=== PATIENT | female | born 1940 | race Caucasian/White ===

== ENCOUNTER 2018-02-13 08:33 | Observation (INO) ==
[2018-02-13] MEDS ORDERED: GELATIN SPONGE,ABSORBABLE 1 EACH SPONGE TOPICAL ONE (08:34)
[2018-02-13] MEDS ORDERED: LIDOCAINE 1% 20 ML VIAL SQ ONE (08:34)
--- NOTE | 2018-02-13 13:23 | Ultrasound Report ---
CLINICAL INFORMATION: Hematuria following right renal biopsy TECHNIQUE: Grayscale and color flow Doppler spectral imaging COMPARISON: CT scan dated 02/13/2018 FINDINGS: Limited evaluation of the right kidney. There is no perinephric hemorrhage. No hydronephrosis. No intrarenal mass. No detectable hematoma. Doppler study demonstrates no active bleeding. If this patient's hematocrit falls or if hematuria is persistent or increased to a follow-up examination should be performed. IMPRESSION: 1. No perinephric hemorrhage. No intrarenal hematoma 2. No detectable active bleeding. Interpreted and Authenticated by: Josiah Navarro 02/13/18
[2018-02-13] MEDS ORDERED: LOSARTAN 50 MG TABLET PO ONE (13:24)
--- NOTE | 2018-02-13 13:53 | Nephrology Progress Note ---
Subjective Patient information: Note initiated : 02/13/18 at 1:50 pm Service Date, if different from initiated Date: [] Patient: Glen Little 77 y/o F admitted on for Renal CT BX Acute renal failure OK per DR Sharlene andino. Chief Complaint: [] Principal diagnosis: renal biopsy Interval history: Patient was seen earlier this week She has h/o acute renal failure with s.creatinine trend of 0.8-0.9 in 11/2017, 2.0-2.3-2.0-1.9-1.7 (improvement after losartan/ppi WAS HELD) UA with persistent WBC, microalbuminuria but no hematuria labs significant for ESR, ANASTASIIA + in titer 1: 160 and atypical P anca titer positive case discussed with rheumatology patient with h/o fatigue, poor appetite but no e/o any other organ involvement given positive serologies and abnormal renal function renal biopsy pursued after detailed discussion of risk and benefit Patient held aspirin per radiology recommendation post procedure patient noted to have overt hematuria, discussed with Dr Navarro Hb/hct at 11.41 was 10.8/31.9, was 11.2 on Friday when checked. Stat renal US showed no active hematoma or extravasation plan is now to observe patient for 24 hours post procedure with serial Hb/hct monitoring to ensure no drop in Hb, monitor for worsening hematuria./bleeding Patient denies any pain at biopsy site she denies SOB, CP she has no other issues Pertinent ROS: as above Objective - Vital Signs Vital signs: Vital Signs Temp Pulse Resp BP BP Pulse Ox 02/13/18 13:01 161/53 94 02/13/18 12:54 99 02/13/18 12:46 152/68 99 02/13/18 12:31 139/72 97 02/13/18 12:18 99 02/13/18 12:16 97.4 F 16 136/75 98 02/13/18 12:08 97.4 F 16 142/68 99 02/13/18 09:11 58 L 16 157/72 100 Intake and Output 02/12/18 02/13/18 02/13/18 21:59 05:59 13:59 Output Total 500 / 500 Balance -500 / -500 Output: Void Amount 500 / 500 Other: Urine Color Dark Shaylee Blood Tinged Urine Odor Normal Intake & Output: Intake & Output 02/12/18 02/13/18 02/13/18 21:59 05:59 13:59 Output Total 500 / 500 Balance -500 / -500 Output: Void Amount 500 / 500 Other: Urine Color Dark Shaylee Blood Tinged Urine Odor Normal - General Appearance General appearance: appears started age EENT: mucous membranes moist Neck: no JVD Respiratory: clear Cardiology: no rub, no edema, regular rate, regular rhythm Gastrointestinal: no tenderness, no guarding Integumentary: no rash, warm and dry Neurologic: alert and oriented x3 Musculoskeletal: no erythema, no cyanosis Psychiatric: mood/affect appropriate - Lab 02/13/18 11:41 Assessment and Plan (1) Acute renal insufficiency Status: Chronic (2) HTN (hypertension) Status: Acute (3) Status post biopsy of kidney Status: Acute - Narrative A/P Narrative: Patient does have overt hematuria post biopsy discussed with radiology, US with no acute concerns plan to monitor serial Hematocrits/Hb, if any significant drop > 1gm/dl of Hb please inform radiology and nephrology Goal BP less than 140/90 if persistent elevated will give prn hydralazine bed rest for 24 hrs SCD boots for DVT prophylaxis resume home meds requested hospitalist to help manage this issue Sign off given to Dr Graff
[2018-02-13] MEDS ORDERED: HYDROcodone/APAP 5/325MG TABLET PO PRN (13:55)
[2018-02-13] MEDS ORDERED: ACETAMINOPHEN 325 MG TABLET PO PRN (13:55)
[2018-02-13] MEDS ORDERED: ONDANSETRON 4 MG/2 ML VIAL IV PRN (13:55)
[2018-02-13] MEDS ORDERED: hydrALAZINE 20 MG/ML VIAL IV PRN (13:59)
[2018-02-13] MEDS: 0.9 % SODIUM CHLORIDE 10 ML SYRINGE IV SCH ×2 (14:27→23:46)
--- NOTE | 2018-02-13 15:51 | Internal Med History&Physical ---
Medical - H&P: [facility] Patient information: Note initiated : 02/13/18 at 3:49 pm Service Date, if different from initiated Date: [] Patient: Glen Little 77 y/o F admitted on 02/13/[address] BX Acute renal failure OK per DR Sharlene andino. Chief Complaint: Hematuria following renal biopsy History of present illness: Ms. Little is a 77 year old F with a history of hypertension, hypothyroidism, acute renal failure occurring over the last few months who presents for renal biopsy. Patient's creatinine began increasing after November of this year. She did have positive serologies, including and a, but no other evidence of organ system involvement of an autoimmune process. Her creatinine improved a bit after stopping PPI, but is not normalized. An elective renal biopsy was scheduled for today. This is performed by Dr. Navarro. Patient was initially placed in extended recovery. However she had gross hematuria with her first void after the biopsy. She is now hospitalized on observation for further monitoring of hemoglobin as well as evidence of ongoing blood loss. Renal ultrasound obtained following the soda of gross hematuria was without evidence of hematoma or other visible bleeding. The patient subsequently voided without gross hematuria. The patient currently feels fairly well, some stinging at the site of the biopsy. She's had a mild headache, thinks it may be because she has been mostly nothing by mouth her only a few liquids during the day. No sore throat, no cough, no shortness of breath, no sputum production, no chest pain, no abdominal pain, no nausea or vomiting, no lower extremity edema, no focal neurologic symptoms. Her main complaint is being hungry. All systems: reviewed and no additional remarkable complaints except as stated Medical - H&P: PMH Medical history: Diabetes mellitus (Chronic) Decreased energy (Chronic) History of excessive thirst (Chronic) Hiatal hernia (Chronic) Fibroids (Chronic) Abdominal pain (Chronic) History of SIADH (Chronic) Tubular adenoma (Chronic ~2016) Anxiety (Chronic) Depression (Chronic) Memory problem (Chronic) Palpitations (Chronic) Syncope (Chronic) Light headedness (Chronic) Malaise (Chronic) Dizziness (Chronic) Fatigue (Chronic) Constipation (Chronic) UTI (urinary tract infection) (Chronic) Encounter for diabetic foot exam (Chronic) Dermatitis (Chronic) Dysuria (Chronic) Dry cough (Chronic) Head congestion (Chronic) Head cold (Chronic) Bilateral cataracts (Chronic) Left bundle branch block (LBBB) on electrocardiogram (Chronic ~02/2014) Meningioma (Chronic ~09/2016) Osteopenia (Chronic) Hypolipidemia (Chronic) Hypothyroidism (Chronic) Hypertension (Chronic) Shoulder dislocation (Chronic) Adjustment disorder with mixed anxiety and depressed mood (Chronic) Cough (Chronic) Nausea (Chronic) Rash (Chronic) Swelling (Chronic) Poor appetite (Chronic) Hyponatremia (Chronic ~02/2014) Acute renal insufficiency (Chronic) Surgical history: Hx of cataract extraction (Chronic) Normal colonoscopy (Chronic ~2005) Pertinent family history: Brother Colon cancer CHF (congestive heart failure) Father Coronary heart disease Sister , at age 40 Lupus Uterine cancer Mother History of ETOH abuse Social history: marital status: occupational 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 other: No Children physical activity: walking frequency: other smoking status: Former smoker quit date: 04/07/79 alcohol intake frequency: does not drink substance use type: does not use Medical - H&P: Meds Home Medications Medication Instructions Recorded Confirmed Type Lactobacillus acidophilus PO QDAY 01/30/18 02/09/18 History aspirin 81 mg tablet,delayed 81 mg PO QDAY 01/30/18 02/09/18 History release atorvastatin 80 mg tablet 80 mg PO QDAY 01/30/18 02/09/18 History doxazosin 4 mg tablet 4 mg PO QPM tab 01/30/18 02/09/18 History fluticasone 50 mcg/actuation nasal 2 spray INTRANASAL QDAY 01/30/18 02/09/18 History spray,suspension levothyroxine 100 mcg tablet 100 mcg PO QDAY 01/30/18 02/09/18 History uzhepain-xvflblq-iozt-lutein tablet mcg PO QDAY tab 01/30/18 02/09/18 History ondansetron 4 mg disintegrating 4 mg PO Q6H PRN tab 01/30/18 02/09/18 History tablet potassium chloride ER 10 mEq 10 meq PO BID 01/30/18 02/09/18 History capsule,extended release sod.chlorid-potassium chloride PO TID 01/30/18 02/09/18 History loratadine 10 mg tablet 10 mg PO QDAY 02/02/18 02/09/18 History magnesium 250 mg tablet 250 mg PO QDAY 02/02/18 02/09/18 History metoprolol succinate ER 200 mg 200 mg PO BID 02/02/18 02/09/18 History tablet,extended release 24 hr losartan 100 mg tablet 50 mg PO QDAY tab 02/05/18 02/09/18 History Docusate Sodium [Dulcolax Stool 100 mg PO DAILYP PRN 02/13/18 02/13/18 History Softener] Psyllium Husk [Metamucil] 660 gm PO BID 02/13/18 02/13/18 History Ranitidine HCl [Zantac 75] 75 mg PO BIDP PRN 02/13/18 02/13/18 History Allergies Allergy/AdvReac Type Severity Reaction Status Date / Time ELLA Inhibitors Allergy Severe unknown Verified 02/02/18 09:59 amlodipine [From Norvasc] Allergy Severe unknown Verified 02/02/18 09:59 flumazenil [From Romazicon] Allergy Severe unknown Verified 02/02/18 09:59 shrimp Allergy Severe unknown Verified 02/02/18 09:59 Sulfa (Sulfonamide Allergy Intermediate unknown Verified 02/02/18 09:59 Antibiotics) felodipine Allergy Mild unknown Verified 02/02/18 09:59 Amoxicillin Allergy Unknown unknown Verified 02/02/18 09:59 Medical - H&P: Exam - Constitutional Vitals: Temp Pulse Resp BP Pulse Ox 98.0 F 58 L 16 151/61 98 02/13/18 15:16 02/13/18 09:11 02/13/18 15:16 02/13/18 15:16 02/13/18 15:21 General appearance: average body habitus, cooperative, no acute distress - Head Head exam: Present: atraumatic, normal inspection - Eye Eye exam: Present: PERRL. Absent: conjunctival injection, scleral icterus - ENT ENT exam: Present: mucous membranes moist, normal oropharynx - Neck Neck exam: Present: normal inspection. Absent: meningismus, thyromegaly - Respiratory Respiratory exam: Present: CTAB. Absent: accessory muscle use, rales, rhonchi, wheezes - Cardiovascular Cardiovascular exam: Present: normal rate and rhythm. Absent: gallop, systolic murmur - Expanded Cardiovascular Exam Peripheral pulses: 2+: carotid (L), carotid (R) - GI/Abdominal GI/Abdominal exam: Present: normal bowel sounds, soft. Absent: organomegaly, tenderness - Extremities Exam Extremities exam: Present: normal capillary refill, normal inspection. Absent: joint swelling, pedal edema - Back Exam Additional comments: Patient is on bed rest, back is not able to be fully examined. No ecchymoses noted. - Neurological Exam Neurological exam: Present: alert, CN II-XII intact, oriented X3. Absent: motor sensory deficit - Psychiatric Psychiatric exam: Present: normal affect, normal mood - Skin Skin exam: Present: dry, warm. Absent: cyanosis Medical - H&P: Reslt - Labs CBC & Chem 7: 02/13/18 14:21 Labs: Short CBC 02/13/18 02/13/18 Range/Units 11:41 14:21 Hgb 10.8 L 10.4 L (12.0-15.0) g/dL Hct 31.9 L 30.7 L (36.0-48.0) % - Impressions Renal U/S IMPRESSION: 1. No perinephric hemorrhage. No intrarenal hematoma 2. No detectable active bleeding. Medical - H&P: A/P (1) Status post biopsy of kidney Current visit: Yes Status: Acute (2) Gross hematuria Current visit: Yes Status: Acute (3) Acute renal insufficiency Current visit: No Status: Chronic (4) Hypertension Current visit: No Status: Chronic (5) Hypothyroidism Current visit: No Status: Chronic - Narrative A/P Narrative: 77-year-old female who is status post percutaneous renal biopsy for unexplained acute rise in her creatinine since this past summer, transition from extended stage observation secondary to gross hematuria postprocedure. Gross hematuria. Likely related to renal biopsy. No evidence of hematoma or active bleeding on ultrasound. Subsequent urine voids have been without gross hematuria. Plan: -Observation hospitalization, telemetry monitoring -Serial H&H. -If continues to have evidence of ongoing blood loss, will need transfer for interventional radiology embolization. -Will keep on clear liquid diet in case may need sedation for procedure. Acute renal failure. Unexplained, biopsy as above. Plan: Monitor creatinine. Hypertension. Plan: Continue regimen. Hypothyroidism. Plan: Continue home meds.
[2018-02-13] MEDS ORDERED: 0.9 % SODIUM CHLORIDE 250 ML IV ONE ×2 (20:00→21:10)
[2018-02-13] MEDS ORDERED: DOXAZOSIN 4 MG TABLET PO SCH (21:00)
[2018-02-13] MEDS: METOPROLOL SUCCINATE 50 MG TAB.XL.24H PO SCH (21:46)
[2018-02-13] MEDS: PSYLLIUM HUSK 6 GM PACKET PO SCH (23:45)
[2018-02-14] MEDS: 0.9 % SODIUM CHLORIDE 10 ML SYRINGE IV SCH (06:00)
[2018-02-14 06:17] LABS: Blood Urea Nitrogen 28 mg/dl (8-23)
--- NOTE | 2018-02-14 07:17 | Nephrology Progress Note ---
Subjective Patient information: Note initiated : 02/14/18 at 7:14 am Service Date, if different from initiated Date: [] Patient: Glen Little 77 y/o F admitted on 02/13/[address] BX Acute renal failure [place] per DR Sharlene andino. Chief Complaint: [] Principal diagnosis: renal biopsy Interval history: Gross hematuria s/p CT guided kidney biopsy Pertinent ROS: Urine clear No pain No weakness Objective - Vital Signs Vital signs: Vital Signs Temp Pulse Pulse Resp BP BP Pulse Ox 02/14/18 06:24 98.2 F 18 135/68 96 02/14/18 03:36 98.3 F 14 125/61 96 02/14/18 00:31 117/53 02/14/18 00:01 100/54 02/13/18 23:31 97.4 F 12 114/51 97 02/13/18 23:01 121/52 02/13/18 22:31 115/49 02/13/18 22:01 103/47 02/13/18 21:46 107/49 02/13/18 21:31 105/50 02/13/18 21:16 120/50 02/13/18 20:46 56 L 116/54 96 02/13/18 20:31 59 L 98/46 96 02/13/18 20:16 63 124/52 96 02/13/18 20:01 60 111/48 94 02/13/18 19:46 55 L 101/47 95 02/13/18 19:31 58 L 87/45 94 02/13/18 19:16 60 75/41 95 02/13/18 19:01 59 L 78/40 95 02/13/18 18:49 96 02/13/18 18:31 70 117/50 96 02/13/18 18:16 71 125/53 95 02/13/18 18:01 56 L 115/51 96 02/13/18 17:59 57 L 96 02/13/18 17:46 59 L 117/53 96 02/13/18 17:31 55 L 119/50 98 02/13/18 17:22 59 L 124/49 96 02/13/18 17:01 126/53 97 02/13/18 17:00 95 02/13/18 16:46 116/50 97 02/13/18 16:31 141/60 97 02/13/18 16:16 15 140/58 97 02/13/18 16:05 99 02/13/18 16:01 145/55 97 02/13/18 15:46 165/63 99 02/13/18 15:31 145/72 98 02/13/18 15:21 98 02/13/18 15:16 98.0 F 16 151/61 99 02/13/18 15:01 16 159/60 98 02/13/18 14:46 17 171/71 100 02/13/18 14:42 99 02/13/18 14:31 159/59 98 02/13/18 14:16 163/62 98 02/13/18 14:01 154/60 98 02/13/18 13:55 18 98 02/13/18 13:31 147/66 99 02/13/18 13:16 159/59 100 02/13/18 13:01 161/53 94 02/13/18 12:54 99 02/13/18 12:46 152/68 99 02/13/18 12:31 139/72 97 02/13/18 12:18 99 02/13/18 12:16 97.4 F 16 136/75 98 02/13/18 12:08 97.4 F 16 142/68 99 02/13/18 09:11 58 L 16 157/72 100 Intake and Output 02/13/18 02/14/18 02/14/18 21:59 05:59 13:59 Intake Total 610 / 610 Output Total 750 / 750 800 / 800 100 / 100 Balance -750 / -750 -190 / -190 -100 / -100 Intake: IV 250 / 250 Sodium Chloride 0.9% 250 ml @ 250 / 250 Wide Open IV BOLUS ONE Rx#: [id number] Oral 360 / 360 Output: Void Amount 750 / 750 800 / 800 100 / 100 Other: Urine Color Yellow Brown Bright Yellow Urine Odor Normal # Voids 1 1 1 Weight 155 lb Intake & Output: Intake & Output 02/13/18 02/14/18 02/14/18 21:59 05:59 13:59 Intake Total 610 / 610 Output Total 750 / 750 800 / 800 100 / 100 Balance -750 / -750 -190 / -190 -100 / -100 Weight 155 lb Intake: IV 250 / 250 Sodium Chloride 0.9% 250 ml @ 250 / 250 Wide Open IV BOLUS ONE Rx#: [id number] Oral 360 / 360 Output: Void Amount 750 / 750 800 / 800 100 / 100 Other: Urine Color Yellow Brown Bright Yellow Urine Odor Normal # Voids 1 1 1 - General Appearance General appearance: appears started age EENT: mucous membranes moist Neck: supple Respiratory: clear Cardiology: no edema Gastrointestinal: no tenderness Integumentary: no rash, warm and dry Neurologic: no focal deficit, alert and oriented x3 Musculoskeletal: no erythema, no cyanosis Psychiatric: mood/affect appropriate, cooperative - Lab 02/14/18 03:33 02/14/18 03:33 Most recent lab results Calcium 9.4 mg/dl (8.6-10.4) 02/14/18 03:33 Assessment and Plan (1) Status post biopsy of kidney Glen Little is a 77-year-old female with hypertension, hyperlipidemia and history of hyponatremia, admitted on 02/13/[address] guided kidney biopsy for overnight observation for gross hematuria. Progress: Gross hematuria, resolved. Anemia, stable. Plan: OK to discharge home. Follow up with Dr. Lopez as scheduled. Status: Acute Priority: Medium (2) Gross hematuria Status: Resolved Priority: Medium
[2018-02-14] MEDS ORDERED: LEVOTHYROXINE 100 MCG TABLET PO SCH (07:30)
[2018-02-14] MEDS ORDERED: POTASSIUM CHLORIDE 10 MEQ TABLET PO SCH (08:00)
--- NOTE | 2018-02-14 08:34 | Ultrasound Report ---
CLINICAL INFORMATION: Status post right renal biopsy. Patient had one episode of hematuria TECHNIQUE: Grayscale and color flow Doppler spectral imaging COMPARISON: Previous postbiopsy renal ultrasound dated 02/13/2018 FINDINGS: Right kidney measures 10.8 x 4.9 x 4.8 cm. There is no perinephric or intrarenal hematoma. No detectable active bleeding. There is no hydronephrosis. Examination is unremarkable. IMPRESSION: Negative right renal ultrasound Interpreted and Authenticated by: Josiah Navarro 02/14/18
--- NOTE | 2018-02-14 08:38 | Cat Scan Report ---
CLINICAL INFORMATION: Acute renal failure TECHNIQUE: Informed consent was obtained. A discussed the procedure and potential risks and complications with the patient and her daughter. Risks include bleeding which may require embolization or surgery. They understand and consent. Patient was scanned in a prone position. Routine ChloraPrep skin cleansing. 1% lidocaine was injected subcutaneously and deep. An 18-gauge coaxial biopsy needle system was utilized. Right renal cortex was biopsied with 3 core specimens obtained. These were placed in saline. Gelfoam was injected through the guiding needle. Postbiopsy scan demonstrates no perinephric hemorrhage or detectable infrarenal hematoma. Initial voiding was positive for hematuria. Patient's hematocrit and hemoglobin were stable overnight and subsequent voids were clear without gross hematuria. Patient was discharged after overnight observation IMPRESSION: CT guided right renal biopsy Interpreted and Authenticated by: Josiah Navarro 02/14/18
--- NOTE | 2018-02-14 08:42 | Discharge Summary ---
Medical - DS: Prov Patient information: Note initiated : 02/14/18 at 8:40 am Service Date, if different from initiated Date: [] Patient: Glen Little 77 y/o F admitted on 02/13/[address] BX Acute renal failure [place] per DR Sharlene andino. Date of admission: 02/13/18 13:55 Discharge date: 02/14/18 Primary care physician: Sarah Jenkins Admitting clinician: Kianna Mccartney Discharging clinician: Kianna Mccartney Medical - DS: Meds - Discharge Medications Active and Home Medications: Home Medications Lactobacillus acidophilus 1 each PO QDAY 01/30/18 [History Confirmed 02/13/18 Last Taken 02/13/18] aspirin 81 mg tablet,delayed release 81 mg PO QDAY 01/30/18 [History Confirmed 02/13/18 Last Taken Unknown] atorvastatin 80 mg tablet 80 mg PO HS 01/30/18 [History Confirmed 02/13/18 Last Taken 02/13/18] doxazosin 4 mg tablet 4 mg PO QPM tab 01/30/18 [History Confirmed 02/13/18 Last Taken Unknown] fluticasone 50 mcg/actuation nasal spray,suspension 2 spray INTRANASAL QDAY [History Confirmed 02/13/18 Last Taken Unknown] levothyroxine 100 mcg tablet 100 mcg PO QDAY 01/30/18 [History Confirmed Last Taken 02/13/18] xdeyfprv-ivztzuv-pvqc-lutein tablet 1 each PO QDAY tab 01/30/18 [History Confirmed 02/13/18 Last Taken 02/13/18] ondansetron 4 mg disintegrating tablet 4 mg PO Q6HP PRN tab 01/30/18 [History Confirmed 02/13/18 Last Taken Unknown] potassium chloride ER 10 mEq capsule,extended release 10 meq PO BID 01/30/18 [ History Confirmed 02/13/18 Last Taken Unknown] loratadine 10 mg tablet 10 mg PO DAILYP PRN 02/02/18 [History Confirmed Last Taken 02/13/18] magnesium 250 mg tablet 250 mg PO QDAY 02/02/18 [History Confirmed 02/13/18 Last Taken 02/13/18] metoprolol succinate ER 200 mg tablet,extended release 24 hr 200 mg PO BID 02/02 [History Confirmed 02/13/18 Last Taken Unknown] losartan 100 mg tablet 100 mg PO QDAY tab 02/05/18 [History Confirmed 02/13/18 Last Taken 02/13/18] Docusate Sodium [Dulcolax Stool Softener] 100 mg PO DAILYP PRN 02/13/18 [ History Confirmed 02/13/18 Last Taken Unknown] Psyllium Husk [Metamucil] 660 gm PO BID 02/13/18 [History Confirmed 02/13/18 Last Taken Unknown] Ranitidine HCl [Zantac 75] 75 mg PO BIDP PRN 02/13/18 [History Confirmed Last Taken Unknown] Medical - DS: Hosp Hospital course: Ms. Little is a 77 year old F with a history of hypertension, hypothyroidism, acute renal failure occurring over the last few months who presents for renal biopsy. Patient's creatinine began increasing after November of this year. She did have positive serologies, including and a, but no other evidence of organ system involvement of an autoimmune process. Her creatinine improved a bit after stopping PPI, but is not normalized. An elective renal biopsy was scheduled for today. This is performed by Dr. Navarro. Patient was initially placed in extended recovery. However she had gross hematuria with her first void after the biopsy. She is now hospitalized on observation for further monitoring of hemoglobin as well as evidence of ongoing blood loss. Renal ultrasound obtained following the soda of gross hematuria was without evidence of hematoma or other visible bleeding. The patient subsequently voided without gross hematuria. The patient remained stable overnight. She is seen by interventional radiology on the day of discharge, repeat ultrasound showed no evidence of hematoma or other worrisome findings. She had no further gross hematuria. Hemoglobin varied on repeat checks, but was stable at her baseline at the time of discharge. Patient is discharged home, follow-up with Dr. Lopez as scheduled for results of biopsy. Discharge diagnosis: Gross hematuria following renal biopsy Secondary discharge diagnosis: Acute renal failure - Time Spent with Patient Total time spent providing and/or coordinating discharge services: Less than 30 minutes Medical - DS: Exam - Constitutional Vitals: Vital Signs Temp Pulse Pulse Resp BP BP Pulse Ox 02/14/18 06:24 98.2 F 18 135/68 96 02/14/18 03:36 98.3 F 14 125/61 96 02/14/18 00:31 117/53 02/14/18 00:01 100/54 02/13/18 23:31 97.4 F 12 114/51 97 02/13/18 23:01 121/52 02/13/18 22:31 115/49 02/13/18 22:01 103/47 02/13/18 21:46 107/49 02/13/18 21:31 105/50 02/13/18 21:16 120/50 02/13/18 20:46 56 L 116/54 96 02/13/18 20:31 59 L 98/46 96 02/13/18 20:16 63 124/52 96 02/13/18 20:01 60 111/48 94 02/13/18 19:46 55 L 101/47 95 02/13/18 19:31 58 L 87/45 94 02/13/18 19:16 60 75/41 95 02/13/18 19:01 59 L 78/40 95 02/13/18 18:49 96 02/13/18 18:31 70 117/50 96 02/13/18 18:16 71 125/53 95 02/13/18 18:01 56 L 115/51 96 02/13/18 17:59 57 L 96 02/13/18 17:46 59 L 117/53 96 02/13/18 17:31 55 L 119/50 98 02/13/18 17:22 59 L 124/49 96 02/13/18 17:01 126/53 97 02/13/18 17:00 95 02/13/18 16:46 116/50 97 02/13/18 16:31 141/60 97 02/13/18 16:16 15 140/58 97 02/13/18 16:05 99 02/13/18 16:01 145/55 97 02/13/18 15:46 165/63 99 02/13/18 15:31 145/72 98 02/13/18 15:21 98 02/13/18 15:16 98.0 F 16 151/61 99 02/13/18 15:01 16 159/60 98 02/13/18 14:46 17 171/71 100 02/13/18 14:42 99 02/13/18 14:31 159/59 98 02/13/18 14:16 163/62 98 02/13/18 14:01 154/60 98 02/13/18 13:55 18 98 02/13/18 13:31 147/66 99 02/13/18 13:16 159/59 100 02/13/18 13:01 161/53 94 02/13/18 12:54 99 02/13/18 12:46 152/68 99 02/13/18 12:31 139/72 97 02/13/18 12:18 99 02/13/18 12:16 97.4 F 16 136/75 98 02/13/18 12:08 97.4 F 16 142/68 99 02/13/18 09:11 58 L 16 157/72 100 Intake and Output 02/13/18 02/14/18 02/14/18 21:59 05:59 13:59 Intake Total 610 / 610 Output Total 750 / 750 800 / 800 100 / 100 Balance -750 / -750 -190 / -190 -100 / -100 Intake: IV 250 / 250 Sodium Chloride 0.9% 250 ml @ 250 / 250 Wide Open IV BOLUS ONE Rx#: [id number] Oral 360 / 360 Output: Void Amount 750 / 750 800 / 800 100 / 100 Other: Urine Color Yellow Brown Bright Yellow Urine Odor Normal # Voids 1 1 1 Weight 155 lb Additional comments: General: No acute distress Chest: Clear, good effort Back: Biopsy site clear, no surrounding ecchymoses Cardio vascular: Regular Abdomen: Soft Neuro:, Oriented, nonfocal Medical - DS: Data Procedures and tests throughout hospitalization: Percutaneous renal biopsy by Dr. Navarro Labs on day of discharge: Labs from last 24 hours 02/14/18 02/14/18 02/13/18 03:33 03:33 22:42 Hgb 10.4 L 9.8 L Hct 31.2 L 29.5 L Sodium 136 Potassium 3.6 Chloride 102 Carbon Dioxide 23 Anion Gap 11.0 BUN 28 H Creatinine 1.6 H GFR Calculation 31 Glucose 88 Calcium 9.4 02/13/18 02/13/18 02/13/18 19:38 17:00 14:21 Hgb 10.2 L 10.5 L 10.4 L Hct 30.8 L 31.3 L 30.7 L Sodium Potassium Chloride Carbon Dioxide Anion Gap BUN Creatinine GFR Calculation Glucose Calcium 02/13/18 11:41 Hgb 10.8 L Hct 31.9 L Sodium Potassium Chloride Carbon Dioxide Anion Gap BUN Creatinine GFR Calculation Glucose Calcium - Impressions Date of Service: 02/14/18 Procedure(s): US renal RT Accession Number(s): [id number] CLINICAL INFORMATION: Status post right renal biopsy. Patient had one episode of hematuria TECHNIQUE: Grayscale and color flow Doppler spectral imaging COMPARISON: Previous postbiopsy renal ultrasound dated 02/13/2018 FINDINGS: Right kidney measures 10.8 x 4.9 x 4.8 cm. There is no perinephric or intrarenal hematoma. No detectable active bleeding. There is no hydronephrosis. Examination is unremarkable. IMPRESSION: Negative right renal ultrasound Medical - DS: A/P - Patient/Caregiver Discharge Instructions Activity: increase activity as tolerated Diet: Regular Diet - Problem Maintenance (1) Status post biopsy of kidney Status: Chronic (2) Gross hematuria Status: Resolved (3) Acute renal insufficiency Status: Chronic (4) Hypertension Status: Chronic Qualifiers: Hypertension type: essential hypertension Qualified Code(s): I10 - Essential (primary) hypertension (5) Hypothyroidism Status: Chronic Qualifiers: Hypothyroidism type: unspecified Qualified Code(s): E03.9 - Hypothyroidism , unspecified - Follow up Plan Follow up with: Kacie Lopez MD [Physician] - (As scheduled for biopsy results) Disposition: Home, Self-Care Prognosis: Good Rehab Potential: Good Overall status at discharge: patient is back to baseline Medical - DS: Qual - VTE Deep Vein Thrombosis/Pulmonary Embolism Present on Admission: No
[2018-02-14] MEDS: METOPROLOL SUCCINATE 50 MG TAB.XL.24H PO SCH ×2 (08:57→11:51)
[2018-02-14] MEDS ORDERED: FAMOTIDINE 20 MG TABLET PO PRN (09:00)
[2018-02-14] MEDS ORDERED: MULTIVIT,THER IRON,CA,FA & MIN 1 TABLET PO SCH (09:00)
[2018-02-14] MEDS ORDERED: LOSARTAN 50 MG TABLET PO SCH (09:00)
[2018-02-14] MEDS: PSYLLIUM HUSK 6 GM PACKET PO SCH (09:04)
[2018-02-14] MEDS ORDERED: ATORVASTATIN 20 MG TABLET PO SCH (21:00)
--- NOTE | 2018-02-16 08:52 | Surgical Pathology Report ---
HISTOLOGY SPECIMEN MICROSCOPIC DIAGNOSIS KIDNEY, RIGHT, BIOPSY: -- RENAL BIOPSIES (GROSS DIAGNOSIS), SUBMITTED TO [facility] FOR RENAL PATHOLOGY. (RLF:adj) CLINICAL HISTORY Acute renal failure. GROSS DESCRIPTION Received fresh labeled renal tissue, are five cores of gaming-brown to gaming-white tissue with hemorrhagic foci. The tissue cores have a diameter 0.1 cm and lengths ranging from 0.2 to 1.5 cm. The specimen is subdivided into glutaraldehyde for electron microscopy, transport media for immunofluorescence and formalin for light microscopy. The entire specimen is submitted to the [facility] for processing. (RLF:[id number]) Electronically Signed by: Sharona Lopez M.D.
== END 2018-02-14 11:54 | disposition home or self-care (01) ==
LOC: RAD 08:33 → ICU 08:33
PROVIDERS: ADMIT Internal Medicine; ATTEND Internal Medicine